=== PATIENT | female | born 1970 | race Caucasian/White ===

== ENCOUNTER → 2016-11-07 | Outpatient (CLI) | payer OTHER ==
[~2016-11-07] MED LIST: LEVE100021 PO; LEVE250T PO; TRAM-10 PO; VENL1CAP92 PO
== END | disposition home or self-care (01) ==
LOC: C.PAPS 09:12
PROVIDERS: ATTEND Family Medicine
DX: Z12.4 Encounter for screening for malignant neoplasm of cervix (principal)

== ENCOUNTER → 2016-11-13 | Outpatient (CLI) | payer OTHER ==
--- NOTE | 2016-11-13 11:39 | DIAGNOSTIC IMAGING REPORT ---
CT SCAN OF THE ABDOMEN AND PELVIS WITHOUT IV CONTRAST CLINICAL HISTORY: Gross hematuria. COMPARISON STUDY: No priors. TECHNIQUE: CT scan of the abdomen and pelvis is performed from the lung bases to the proximal femora. Images are reviewed in the axial, sagittal, and coronal planes. IV contrast was not administered for this examination as per the referring clinician. Automated dose control exposure was utilized. The examination is degraded by a paucity of intraperitoneal fat. CT DOSE: 329.57 mGycm FINDINGS: Lung bases: The heart is normal in size and without pericardial effusion. The lung bases are clear. Liver: The unenhanced liver is normal in size, contour, and attenuation. There is no intrahepatic biliary ductal dilatation. Gallbladder: Unremarkable. Spleen: Normal in size and attenuation. Pancreas: Unenhanced pancreas is grossly unremarkable but not well visualized. Adrenal glands: Unremarkable. Kidneys: The unenhanced kidneys are normal in size and without hydronephrosis. There is a 3 mm nonobstructing calculus in the interpolar right kidney. No left renal calculi are identified. There is no evidence of contour deforming renal mass lesion. Abdominal vasculature: The abdominal aorta is normal in course and caliber. Bowel: The small bowel and colon are normal in course and caliber. The appendix is not visualized. Peritoneum: There is no intraperitoneal free air or abdominal ascites. Lymphadenopathy: None. Pelvic viscera: The bladder is partially decompressed and normal as visualized. The uterus is normal as imaged. No adnexal lesion is seen. A dominant follicle in the left ovary measures up to 2.1 cm. There is trace free fluid in the cul-de-sac. A tampon is in place. Skeletal structures: No lytic or blastic lesions are seen. IMPRESSION: 1. The examination is degraded by a paucity of intraperitoneal fat. 2. No acute infectious or inflammatory findings are identified in the abdomen or pelvis. 3. There is a small nonobstructing right renal calculus. 4. There is trace and likely physiologic free fluid in the cul-de-sac. Electronically signed by: Arnel Chang M.D. 11/13/2016 11:37 AM Dictated Date/Time: 11/13/2016 11:32 AM
== END | disposition home or self-care (01) ==
LOC: C.CTS 11:15
PROVIDERS: ATTEND Family Medicine
DX: R31.0 Gross hematuria (principal)

== ENCOUNTER → 2016-11-29 | Outpatient (CLI) | payer OTHER | END | disposition home or self-care (01) | LOC: C.PATHSPEC 17:27 | PROVIDERS: ATTEND Urology | DX: R31.0 Gross hematuria (principal) ==